=== PATIENT | female | born 2005 | race Hispanic/Latino ===

== ENCOUNTER 2024-06-20 10:40 | Emergency (ER) | payer OTHER ==
[~2024-06-20] VITALS: Ht 152.4 cm; Wt 64.4 kg
[2024-06-20 10:49] VITALS: BP 120/76; PULSE 88; RESP 18; TEMP 98.6; O2SAT 98
[2024-06-20] MEDS: acetaMINOPHEN 500 MG TABLET PO ONE (10:54)
[2024-06-20] MEDS: CYCLOBENZAPRINE HCL 10 MG TABLET PO ONE (10:54)
[2024-06-20] MEDS ORDERED: IBUP-2070 PO (12:24)
[2024-06-20] MEDS ORDERED: CYCL10TA16 PO (12:24)
== END 2024-06-20 12:39 | disposition home or self-care (01) ==
LOC: EDH 10:40
DX: S39.012A Strain of muscle, fascia and tendon of lower back, initial encounter (principal); V49.59XA Passenger injured in collision with other motor vehicles in traffic accident, initial encounter; Y93.89 Activity, other specified; Y92.488 Other paved roadways as the place of occurrence of the external cause; Y99.8 Other external cause status
CPT/HCPCS: 72100; 81025